=== PATIENT | female | born 1990 | race Caucasian/White ===

== ENCOUNTER 2021-04-16 12:30 | Outpatient (RCR) | payer OTHER, SELFPAY ==
--- NOTE | 2021-04-02 12:26 | PTOPEVAL ---
PHYSICAL THERAPY EVALUATION Thank you for referring Carolynn Braswell to [facility].? Carolynn was evaluated for the dx of BPPV. The patient is scheduled to be seen for therapy? 1 x/week for 4 weeks. Please review, sign, date and return this plan of care WAYNE. I agree with and certify that the following plan of care is medically necessary. Referring Physician Date Attending Provider: Farzad Anna, F[employer] SOFTWARE DEVELOPER *PT Outpatient Evaluation Start: 04/02/21 10:29 Freq: Status: Active Protocol: Document 04/02/21 10:32 [facility] (Rec: 04/02/21 11:33 [facility] [id number]) Therapy Assessment Status Assessment Status Assessment Status Evaluation Evaluation Information Problem Diagnosis BPPV Onset 6-9 months Cause no injury Additional Evaluation Detail The patient had a bout of dizziness when she was 19 that dissipated after she relocated. The patient had dizziness about every 2 years. The patient reports increased frequency with symptoms and provokes with tipping her head back or getting in/out of bed. The patient has bouts of severe dizziness that last all day. The last one was a couple months ago. The patient doesn't take the meds to help control due to pill anxiety. Subjective Information The patient is avoiding step Query Text:As Reported By Patient/ ladders/ladders and yoga; and Family occasionally can't drive, due to fear of dizziness or current symptoms. Previous Treatments Previous Treatments For This Problem tried PT last year- got results but symptoms returned. Pain Assessment Timing of Pain Assessment Timing of Pain Assessment Assessment Self Report Self Report Pain Level 0 Pain Score Pain Score 0: Self Report Cervical and Lumbar ROM Cervical ROM Reason Not Measured WNL/Left,WNL/Right Upper Extremity Range of Motion General Upper Extremity Range of Motion Reason Not Measured WFL/Left,WFL/Right Upper Extremity Muscle Strength Testing General Upper Extremity Strength Reason Not Measured WFL/Left,WFL/Right Special Test-Spine Cervical Spine Special Tests Vertebral Artery Test Negative Right,Negative Left Gait Assessment Gait Pattern Assessment Gait Pattern No Deviations/Normal Vestibular Evaluation Vestibular Medical Information Past Vestibular History
--- NOTE | 2021-05-05 16:45 | PCPTNOTE ---
Patient called & cancelled scheduled appointment this date and will call to reschedule at later date.
--- NOTE | 2021-05-19 14:38 | PCPTNOTE ---
PHYSICAL THERAPY DISCHARGE Attending Provider: Farzad Anna, WANT AD RECEIVER Patient:Carolynn Braswell Date of :1990 Patient has not returned for any further treatments since 04/16/2021, therefore she will be discharged at this time. Patient?s initial visit was on 04/02/2021 10:30 and she had a total of 3 visits. The goals have been partially met. Thank you for referring this patient to [facility]. Please review, sign, date and return this discharge summary WAYNE. I have been updated about the patient's current status and I agree with discharge from the above service at this time. Referring Physician Date
== END 2021-05-20 09:50 | disposition home or self-care (01) ==
LOC: ANHPT 12:30
PROVIDERS: Visit Provider Nurse Practitioner Family
DX: H81.10 Benign paroxysmal vertigo, unspecified ear (principal)
CPT/HCPCS: 97110; 97162